=== PATIENT | female | born 1940 | race Caucasian/White ===

== ENCOUNTER → 2016-05-27 | Outpatient (CLI) | payer MEDICARE ==
[~2016-05-27] MED LIST: ACET325T96 PO; ATV1 PO; CALC-20 PO; METH-848 PO; MTRCR45 TOP; MULT-845 PO; NRV/5 PO; ONDA4TAB9 PO; OXYC1TAB3 PO; PSYL0.524 PO; TNR25 PO; ZFRODT/8 PO; [UNRECOGNIZED DRUG - OTHER] PR
[2016-05-27 14:04] LABS: CHOLESTEROL/HDL RATIO 2.5; THYROID STIMULATING HORMONE 0.23 uIu/ml (0.300-4.500)
== END | disposition home or self-care (01) ==
LOC: C.LABBC 10:51
PROVIDERS: ATTEND Internal Medicine
DX: R63.4 Abnormal weight loss (principal); R40.0 Somnolence

== ENCOUNTER → 2016-06-15 | Outpatient (CLI) | payer MEDICARE | END | disposition home or self-care (01) | LOC: C.MAMM 11:17 | PROVIDERS: ATTEND Internal Medicine | DX: M85.80 Other specified disorders of bone density and structure, unspecified site (principal); R63.4 Abnormal weight loss; M81.0 Age-related osteoporosis without current pathological fracture; Z78.0 Asymptomatic menopausal state; J01.90 Acute sinusitis, unspecified; J43.9 Emphysema, unspecified; R91.1 Solitary pulmonary nodule ==

== ENCOUNTER → 2016-06-15 | Outpatient (CLI) | payer MEDICARE ==
--- NOTE | 2016-06-15 15:29 | DIAGNOSTIC IMAGING REPORT ---
CHEST 2 VIEWS ROUTINE CLINICAL HISTORY: ACUTE SINUSITIS COMPARISON STUDY: 10/28/2015 FINDINGS: The chest has an emphysematous configuration. There is no failure. There is no lobar consolidation. There are chronic fibronodular opacities within the right midlung zone. There is a new 11 mm right midlung zone pulmonary nodule. This is rather dense despite its small size and may be calcified.[The nodule is not clearly visualized on the lateral radiograph. If further evaluation is desired, CT scanning would be considered the test of choice. IMPRESSION: 1. Radiographic evidence of emphysema 2. Stable fibronodular opacities at the right midlung zone. 3. New indeterminate 11 mm right midlung zone pulmonary nodule. The nodule is rather dense despite its small size, a finding favoring a benign etiology. Electronically signed by: Clint Lew M.D. 06/15/2016 3:28 PM Dictated Date/Time: 06/15/2016 3:25 PM
== END | disposition home or self-care (01) ==
LOC: C.RADBC 15:04
PROVIDERS: ATTEND Internal Medicine Geriatric Medicine
DX: J01.90 Acute sinusitis, unspecified (principal); J43.9 Emphysema, unspecified; R91.1 Solitary pulmonary nodule

== ENCOUNTER → 2016-06-16 | Outpatient (CLI) | payer MEDICARE ==
[2016-06-16 15:04] LABS: BLOOD UREA NITROGEN 13 mg/dl (7-18); BUN/CREATININE RATIO 20.1 (10-20); CALCIUM 9.3 mg/dl (8.5-10.1); CARBON DIOXIDE 28 mmol/L (21-32); CHLORIDE 104 mmol/L (98-107); CREATININE 0.66 mg/dl (0.60-1.20); GLUCOSE 83 mg/dl (70-99); POTASSIUM 4.3 mmol/L (3.5-5.1); SODIUM 140 mmol/L (136-145)
== END | disposition home or self-care (01) ==
LOC: C.LAB 12:17
PROVIDERS: ATTEND Internal Medicine Geriatric Medicine
DX: R91.1 Solitary pulmonary nodule (principal)

== ENCOUNTER → 2016-06-18 | Outpatient (CLI) | payer MEDICARE ==
--- NOTE | 2016-06-18 08:53 | DIAGNOSTIC IMAGING REPORT ---
CHEST CT WITH CONTRAST CT DOSE: 217.81 mGy.cm HISTORY: PULMONARY NODULE TECHNIQUE: Multiaxial CT images of the chest were performed following the intravenous administration of contrast. COMPARISON: 11/26/2013 FINDINGS: Slightly progressive parenchymal nodularity in the right lung as well as lung bases. Multinodular appearance to the right mid lung region including components of the right upper lobe and right middle lobe include nodules measuring from 4 to 11 mm. The millimeter nodule is peripheral and is best seen on image 35. This has increased from a prior measurement of 3 mm. All additional nodules again positioned primarily in the right mid lower lung region are progressive in terms of size as well as number. Minimal nodularity posterior left costophrenic angle considered stable. Mediastinal hilar regions are again remarkable for a rather prominent heterogeneous multinodular substernal thyroid. It again compromises the transverse lumen of the trachea and is similar. IMPRESSION: Mildly progressive pulmonary nodularity throughout the right and to a lesser extent left basilar pulmonary regions. 2. Unchanging substernal thyroid with evidence for transverse narrowing of the trachea 3. No significant mediastinal or hilar adenopathy. 4. Diagnostic nodularity considerations must include inflammatory, granulomatous, or neoplastic process. Electronically signed by: Robbie Glasgow M.D. 06/18/2016 8:51 AM Dictated Date/Time: 06/18/2016 8:42 AM
== END | disposition home or self-care (01) ==
LOC: C.CTS 08:17
PROVIDERS: ATTEND Internal Medicine Geriatric Medicine
DX: R91.1 Solitary pulmonary nodule (principal)

== ENCOUNTER → 2016-07-28 | Outpatient (CLI) | payer MEDICARE ==
[~2016-07-28] MED LIST changes: +DIPH-416 PO; +MIRT45TA3 PO
--- NOTE | 2016-07-28 14:42 | MAMMOGRAPHY REPORT ---
BILATERAL DIGITAL SCREENING MAMMOGRAM WITH CAD: 07/28/2016 CLINICAL HISTORY: Routine screening. Patient has no complaints. TECHNIQUE: Bilateral CC, MLO and repeat left MLO views were obtained. Current study was also evalua ceci with a Computer Aided Detection (CAD) system. COMPARISON: Comparison is made to exams dated: 06/26/2015 mammogram, 06/18/2014 mammogram, 06/15/2013 m ammogram - [facility], 05/08/2012 mammogram, 05/03/2011 mammogram, and 04/30/2010 mammo gram. BREAST COMPOSITION: The tissue of both breasts is extremely dense, which lowers the sensitivity of mammography. The breast parenchyma is increased in density, which can be secondary to recent weight loss. FINDINGS: The right MLO view is suboptimal due to inability of the patient to adequately position fo r the exam. There is a small clustered microcalcifications in the upper outer quadrant of the right breast, that appears stable on prior mammograms dating back to at least 2010, therefore likely pedro gn. No new suspicious mass, architectural distortion or cluster of microcalcifications is seen. IMPRESSION: ACR BI-RADS CATEGORY 1: NEGATIVE There is no mammographic evidence of malignancy, within the limitations of the exam. A 1 year screen ing mammogram is recommended. The patient will receive written notification of the results. Approximately 10% of breast cancers are not detected with mammography. A negative mammographic repor t should not delay biopsy if a clinically suggestive mass is present. Lisseth Gasca M.D. ay/:07/28/2016 11:10:02 Production Maintenance Technician: Iqra QUINONEZ(R)([place]), [facility] letter sent: Normal 1/2 BI-RADS Code: ACR BI-RADS Category 1: Negative
== END | disposition home or self-care (01) ==
LOC: C.MAMM 10:40
PROVIDERS: ATTEND Internal Medicine
DX: Z12.31 Encounter for screening mammogram for malignant neoplasm of breast (principal)

== ENCOUNTER → 2016-09-17 | Outpatient (CLI) | payer MEDICARE ==
[2016-09-17 16:08] LABS: THYROID STIMULATING HORMONE 0.286 uIu/ml (0.300-4.500)
== END | disposition home or self-care (01) ==
LOC: C.LAB 14:36
PROVIDERS: ATTEND Internal Medicine Endocrinology, Diabetes & Metabolism
DX: E04.1 Nontoxic single thyroid nodule (principal); E05.90 Thyrotoxicosis, unspecified without thyrotoxic crisis or storm

== ENCOUNTER → 2016-10-01 | Outpatient (CLI) | payer MEDICARE ==
--- NOTE | 2016-10-01 09:40 | DIAGNOSTIC IMAGING REPORT ---
Ultrasound of the finger regions LEFT EXTREMITY NONVASCULAR LIMITED CLINICAL HISTORY: SWOLLEN LYMPH NODES, 2CM SWELLING L GROIN TECHNIQUE: Real-time ultrasound COMPARISON STUDY: None FINDINGS: Real-time ultrasound confirms several benign-appearing lymph nodes in the inguinal regions bilaterally. These do not exceed 8 mm in maximum dimension. There are unremarkable in overall morphology IMPRESSION: Several small benign-appearing lymph nodes in the inguinal regions bilaterally Electronically signed by: Robbie Glasgow M.D. 10/01/2016 9:38 AM Dictated Date/Time: 10/01/2016 9:27 AM
== END | disposition home or self-care (01) ==
LOC: C.ULTR 09:04
PROVIDERS: ATTEND Dermatology
DX: R59.0 Localized enlarged lymph nodes (principal)

== ENCOUNTER → 2016-11-01 | Outpatient (CLI) | payer MEDICARE ==
[~2016-11-01] MED LIST changes: -DIPH-416 PO; -MIRT45TA3 PO
[2016-11-01 16:39] LABS: THYROID STIMULATING HORMONE 1.96 uIu/ml (0.300-4.500)
== END | disposition home or self-care (01) ==
LOC: C.LAB 15:45
PROVIDERS: ATTEND Internal Medicine Endocrinology, Diabetes & Metabolism
DX: E05.90 Thyrotoxicosis, unspecified without thyrotoxic crisis or storm (principal); E04.9 Nontoxic goiter, unspecified

== ENCOUNTER → 2016-11-02 | Outpatient (CLI) | payer MEDICARE ==
--- NOTE | 2016-11-02 11:04 | DIAGNOSTIC IMAGING REPORT ---
CT SCAN OF THE CHEST WITHOUT IV CONTRAST CLINICAL HISTORY: Follow-up pulmonary nodules. COMPARISON STUDY: Chest CT scans dated 06/18/2016 and 11/26/2013. TECHNIQUE: CT scan of the thorax was performed from the thoracic inlet to the upper abdomen. Images are reviewed in the axial, sagittal, and coronal planes. IV contrast was not administered for this examination. CT DOSE: 269.36 mGycm FINDINGS: Thyroid: The thyroid gland is markedly enlarged and heterogeneous. There are numerous low-attenuation thyroid nodules which measure up to at least 1.6 cm as well as coarse calcifications. This causes mild tracheal narrowing and the thyroid gland extends into the superior mediastinum. Thoracic aorta: There is mild atherosclerotic calcification of the thoracic aorta, which is normal in caliber and demonstrates standard 3-vessel arch anatomy. Heart: The heart is mildly enlarged and there is trace pericardial fluid. There are coronary artery calcifications. Lungs and pleural spaces: There is biapical scarring. As noted above, there is narrowing of the trachea at and below the level of the thoracic inlet secondary to mass effect from the markedly enlarged thyroid gland. The distal trachea and central airways are patent. There is no lobar consolidation or pleural effusion. Foci of linear atelectasis versus scarring are present throughout both lungs. There are numerous foci of tree-in-bud nodularity seen throughout both lungs, greatest in the lower lobes, the right upper lobe, and the right middle lobe. This is overall similar in appearance to the 06/18/2016 examination. The largest focus of nodularity is seen in the right upper lobe on image #173 and measures up to 11 mm. Mild bronchiectasis is seen in the right upper lobe. Mediastinum: There are scattered subcentimeter mediastinal lymph nodes. These are not pathologically enlarged by size criteria. [place]: Well assessed without IV contrast. Axillae: There is no axillary lymphadenopathy. Upper abdomen: Cholecystectomy clips are noted. Pill fragments are suggested in the stomach. The visualized kidneys demonstrate cortical atrophy. A 1.6 cm cyst is noted in the upper pole of the left kidney.. Skeletal structures: The skeletal structures are osteopenic. Degenerative change and hyperkyphosis are noted throughout the thoracic spine. No lytic or blastic bony lesions are seen. Advanced arthritic change is seen in the shoulders. IMPRESSION: 1. There is no lobar consolidation or pleural effusion. 2. There are numerous foci of tree-in-bud nodularity seen throughout both lungs, greatest in the right upper lobe and at the lung bases. Additionally, there is mild right upper lobe bronchiectasis. The appearance is atypical for neoplasm, and strongly favors a chronic/atypical infectious/inflammatory pneumonitis such as ROXY or fungus. Clinical correlation will be essential. A precautionary 6 month follow-up examination is recommended for reassessment. 3. Markedly enlarged, heterogeneous, and multinodular thyroid gland with substernal extension. The appearance is typical for multinodular goiter. 4. There is mild narrowing of the trachea at and below the level of the thoracic inlet secondary to the markedly enlarged thyroid gland. 5. Mild cardiomegaly. 6. Additional findings as above. Electronically signed by: Elieser Camarillo M.D. 11/02/2016 11:03 AM Dictated Date/Time: 11/02/2016 10:54 AM
== END | disposition home or self-care (01) ==
LOC: C.CTS 09:50
PROVIDERS: ATTEND Internal Medicine Pulmonary Disease
DX: R91.8 Other nonspecific abnormal finding of lung field (principal); E04.2 Nontoxic multinodular goiter

== ENCOUNTER 2016-12-05 12:38 | Emergency (ER) | payer MEDICARE ==
[~2016-12-05] VITALS: Ht 167.6 cm; Wt 52.7 kg
[~2016-12-05 12:38] MED LIST changes: -ACET325T96 PO; -METH-848 PO; -OXYC1TAB3 PO
[2016-12-05 12:42] VITALS: Ht 167.6 cm; Wt 52.7 kg
[2016-12-05] MEDS ORDERED: METH-848 PO (12:55)
[2016-12-05] MEDS ORDERED: ACET325T96 PO (12:55)
[2016-12-05] MEDS ORDERED: SODIUM CHLORIDE 0.9% 1000ML 1,000 ML IV STA (12:56)
[2016-12-05] MEDS ORDERED: ONDANSETRON INJ 2 MG/ML 2 ML VIAL IV STA (12:56)
--- NOTE | 2016-12-05 12:58 | EMERGENCY ROOM VISIT NOTE ---
History Report prepared by Giselle: Maki Mann Under the Supervision of: Dr. Avni Key D.O. First contact with patient: 12:49 Chief Complaint: GI ASSESSMENT Stated Complaint: PAIN IN BELLY AND DOWN TO PELVIC AREA Nursing Triage Summary: triage note pt has ibs and is under stress, pt reports pain in center of abdomin with increasing one day after eating causing additional pain. denies d/v History of Present Illness The patient is a 76 year old female who presents to the Emergency Room with complaints of worsening abdominal pain for the past 1 day. She rates her pain as a 3/10 and describes it as being located in the center of her abdomen. Eating worsens her discomfort. She has a history of IBS and states she called her doctors office this morning, and was referred to the ED for further evaluation. The patient admits she has been under more stress recently, which can exacerbate her IBS symptoms. She has a previous history of a cholecystectomy but still has her appendix. She denies any chest pain, shortness of breath, nausea, vomiting or diarrhea. Source of History: patient Onset: 1 day [employer] SUPER[employer] Position: abdomen Symptom Intensity: 3/10 Timing: worsening Modifying Factors (Worsening): eating, other (recent stress) Associated Symptoms: No chest pain, No SOB, No nausea, No vomiting, No diarrhea Review of Systems See HPI for pertinent positives & negatives. A total of 10 systems reviewed and were otherwise negative. 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 (6) Melanoma in situ (7) Stomach problems Surgical Problems: (1) History of cholecystectomy (2) S/P knee replacement Family History Hypertension Social History Smoking Status: Former Smoker Alcohol Use: none Drug Use: none Marital Status: in relationship Housing Status: lives with significant other Occupation Status: retired Current/Historical Medications Scheduled Acetaminophen Tab (Tylenol), 650 MG PO DAILY Amlodipine Besylate (Amlodipine Besylate), 5 MG PO DAILY Atenolol (Atenolol), 25 MG PO DAILY Calcium Carbonate-Vitamin D (Calcium 600 + D), 1 TAB PO DAILY Methimazole (Methimazole), 5 MG PO DAILY Multiple Vitamins W/ Minerals (Centrum Silver Adult 50+), 1 TAB PO DAILY Scheduled PRN Lorazepam (Lorazepam), 0.5-1 MG PO Q6H PRN for Anxiety Oxycodone Immediate Rel Tab (Roxicodone Ir), 1-2 TAB PO Q4H PRN for Severe Pain Allergies Coded Allergies: NSAIDs (Verified Adverse Reaction, Intermediate, Pt has colitis. No allergy, not to take NSAIDS, 10/21/15) Morphine (Unverified Adverse Reaction, Mild, sick and dizzy, 10/14/15) Gabapentin (Verified Adverse Reaction, Unknown, GI SYMPTOMS, 10/21/15) Physical Exam Vital Signs Date Time Temp Pulse Resp B/P (MAP) Pulse Ox O2 Delivery O2 Flow Rate FiO2 12/05/16 16:46 36.6 73 18 149/68 95 12/05/16 16:02 69 18 155/63 95 Room Air 12/05/16 14:29 72 18 148/65 95 Room Air 12/05/16 13:50 75 12/05/16 12:42 36.6 89 18 156/82 97 Room Air Physical Exam GENERAL: Patient is awake, alert, in no acute distress, patient is resting comfortably and showing no signs of anxiety EYES: The conjunctivae are clear. The pupils are round and reactive. EARS, NOSE, MOUTH AND THROAT: The nose is without any evidence of any deformity. Mucous membranes are moist tongue is midline NECK: The neck is nontender and supple. RESPIRATORY: Normal respiratory effort is noted there is no evidence of wheezing rhonchi or rales CARDIOVASCULAR: Regular rate and rhythm noted there no murmurs rubs or gallops normal S1 normal S2 GASTROINTESTINAL: The abdomen is soft with diffuse tenderness to palpation, mild guarding noted in both lower quadrants. BACK: No midline tenderness or or step-off noted range of motion in flexion extension as well as rotation no signs of muscle spasm noted MUSCULOSKELETAL/EXTREMITIES: There is no evidence of gross deformity full range of motion is noted in the hips and shoulders SKIN: Pedal edema bilaterally. There is no obvious evidence of any rash. There are no petechiae, pallor or cyanosis noted. NEUROLOGIC: Patient is awake alert and oriented x3 strength is symmetric patellar reflexes are 2+ bilaterally Medical Decision & Procedures ER Provider Diagnostic Interpretation: Radiology results as stated below per my review and radiologist interpretation: CHEST ONE VIEW PORTABLE HISTORY: Generalized abdominal pain. COMPARISON: Chest CT 11/02/2016. FINDINGS: The heart remains mildly enlarged. The lungs are hyperexpanded with apical predominant changes. Diffuse chronic interstitial thickening, unchanged. No new focal lung consolidations. Right upper to midlung zone peripheral nodular densities are again noted. Thyroid goiter, unchanged. No pleural effusions. No pneumothorax. IMPRESSION: No significant change compared to the prior study. No acute process. Stable peripheral nodular densities within the right upper to midlung zone. Electronically signed by: Aldo Pisano M.D. 12/05/2016 1:[address] OF THE ABDOMEN AND PELVIS WITH CONTRAST CLINICAL HISTORY: Lower abdominal pain. COMPARISON STUDY: CT of the abdomen and pelvis October 21, 2015. TECHNIQUE: Following IV administration of 115 mL of Optiray-320, axial images of the abdomen and pelvis were obtained from the lung bases to the proximal femurs. Images were reviewed in the axial, sagittal, and coronal planes. IV contrast was administered without complication. A dose lowering technique was utilized adhering to the principles of ALARA. Oral contrast was administered. CT DOSE: 237.04 mGy.cm FINDINGS: Visualized portions of the lower chest demonstrate bronchiectasis with mucus plugging within the right middle lobe. There are mild tree-in-bud opacities within the lower lobes which were shown on prior exams. The liver, spleen, adrenal glands and pancreas are unremarkable. Slight dilatation of the biliary tree is likely related to prior cholecystectomy. There are numerous water attenuation bilateral renal lesions which are consistent with cysts. There is no hydronephrosis. There is no evidence for a bowel obstruction. There is sigmoid diverticulosis without evidence for acute diver colitis. No pneumatosis, free air or portal venous gas is present. The appendix is not visualized but there is no right lower quadrant inflammation. There are no suspicious osseous lesions. IMPRESSION: 1. No acute process within the abdomen or pelvis. 2. Sigmoid diverticulosis without evidence for acute diverticulitis. 3. No bowel obstruction. 4. Numerous bilateral renal cysts. Electronically signed by: Nicolas Cheng M.D. 12/05/2016 4:12 PM Laboratory Results 12/05/16 13:05 Red Blood Count 3.98, Mean Corpuscular Volume 93.7, Mean Corpuscular Hemoglobin 31.4, Mean Corpuscular Hemoglobin Concent 33.5, Mean Platelet Volume 11.0, Neutrophils (%) (Auto) 58.3, Lymphocytes (%) (Auto) 24.8, Monocytes (%) (Auto) 12.1, Eosinophils (%) (Auto) 3.8, Basophils (%) (Auto) 0.8, Neutrophils # (Auto ) 2.75, Lymphocytes # (Auto) 1.17, Monocytes # (Auto) 0.57, Eosinophils # (Auto ) 0.18, Basophils # (Auto) 0.04 12/05/16 13:05 Test 12/05/16 13:05 12/05/16 13:16 12/05/16 13:45 White Blood Count 4.72 K/uL (4.8-10.8) Red Blood Count 3.98 M/uL (4.2-5.4) Hemoglobin 12.5 g/dL (12.0-16.0) Hematocrit 37.3 % (37-47) Mean Corpuscular Volume 93.7 fL (80-100) Mean Corpuscular Hemoglobin 31.4 pg (25-34) Mean Corpuscular Hemoglobin Concent 33.5 g/dl (32-36) Platelet Count 223 K/uL (130-400) Mean Platelet Volume 11.0 fL (7.4-10.4) Neutrophils (%) (Auto) 58.3 % Lymphocytes (%) (Auto) 24.8 % Monocytes (%) (Auto) 12.1 % Eosinophils (%) (Auto) 3.8 % Basophils (%) (Auto) 0.8 % Neutrophils # (Auto) 2.75 K/uL (1.4-6.5) Lymphocytes # (Auto) 1.17 K/uL (1.2-3.4) Monocytes # (Auto) 0.57 K/uL (0.11-0.59) Eosinophils # (Auto) 0.18 K/uL (0-0.5) Basophils # (Auto) 0.04 K/uL (0-0.2) RDW Standard Deviation 46.0 fL (36.4-46.3) RDW Coefficient of Variation 13.4 % (11.5-14.5) Immature Granulocyte % (Auto) 0.2 % Immature Granulocyte # (Auto) 0.01 K/uL (0.00-0.02) Prothrombin Time 10.4 SECONDS (9.0-12.0) Prothromb Time International Ratio 1.0 (0.9-1.1) Activated Partial Thromboplast Time 26.0 SECONDS (21.0-31.0) Partial Thromboplastin Ratio 1.0 Anion Gap 4.0 mmol/L (3-11) Est Creatinine Clear Calc Drug Dose 65.3 ml/min Estimated GFR () 101.9 Estimated GFR (Non- 87.9 BUN/Creatinine Ratio 18.5 (10-20) Calcium Level 9.4 mg/dl (8.5-10.1) Total Bilirubin 0.5 mg/dl (0.2-1) Direct Bilirubin 0.1 mg/dl (0-0.2) Aspartate Amino Transf (AST/SGOT) 18 U/L (15-37) Alanine Aminotransferase (ALT/SGPT) 23 U/L (12-78) Alkaline Phosphatase 81 U/L (45-117) Total Creatine Kinase 45 U/L (26-192) Creatine Kinase MB < 0.5 ng/ml (0.5-3.6) Creatine Kinase MB Ratio (0-3.0) Troponin I < 0.015 ng/ml (0-0.045) Total Protein 6.6 gm/dl (6.4-8.2) Albumin 3.5 gm/dl (3.4-5.0) Lipase 147 U/L (73-393) Bedside Lactic Acid Venous 0.71 mmol/L (0.90-1.70) Urine Color YELLOW Urine Appearance CLEAR (CLEAR) Urine pH 8.0 (4.5-7.5) Urine Specific Helen 1.014 (1.000-1.030) Urine Protein NEG (NEG) Urine Glucose (UA) NEG (NEG) Urine Ketones NEG (NEG) Urine Occult Blood NEG (NEG) Urine Nitrite NEG (NEG) Urine Bilirubin NEG (NEG) Urine Urobilinogen NEG (NEG) Urine Leukocyte Esterase TRACE (NEG) Urine WBC (Auto) 1-5 /hpf (0-5) Urine RBC (Auto) 0-4 /hpf (0-4) Urine Hyaline Casts (Auto) 0 /lpf (0-5) Urine Epithelial Cells (Auto) 5-10 /lpf (0-5) Urine Bacteria (Auto) NEG (NEG) Laboratory results per my review. Medications Administered Medications (Trade) Dose Ordered Sig/Mirna Route Start Time Stop Time Status Last Admin Dose Admin Sodium Chloride 1,000 ml @ 999 mls/hr Q1H1M STAT IV 12/05/16 12:56 12/05/16 13:56 DC 12/05/16 13:30 999 MLS/HR Ondansetron HCl (Zofran Inj) 4 mg NOW STAT IV 12/05/16 12:56 12/05/16 12:58 DC 12/05/16 13:28 4 MG ECG Indication: abdominal pain Rate (beats per minute): 66 Rhythm: normal sinus Findings: no acute ischemic change, no ectopy Change: no significant change (10/23/2015) ED Course 1254: The patient was evaluated in room B5. A complete history and physical examination were performed. 1256: Zofran 4 mg IV, NSS 1000 ml @ 999 mls/hr IV. 1630: I reevaluated the patient. I discussed her results and discharge instructions and she verbalized complete understanding and agreement. 1436: Fentanyl 50 mcg IV. Medical Decision Prior records/ancillary studies reviewed. Triage Nursing notes reviewed. The patient's history was concerning for abdominal pain. Differential diagnosis: Etiologies such as appendicitis, diverticulitis, PUD, biliary pathology, UTI, pancreatitis, obstruction, mesenteric ischemia, aortic pathology, infections, inflammatory bowel disease, renal colic, as well as others were entertained. The patient is a 76-year-old female who presented to the emergency department for an evaluation of lower abdominal pain. The patient is a history of irritable bowel syndrome and thought it could be consistent with her irritable bowel syndrome but she was sent to the emergency department after the on-call physician advised her to come to the emergency department for a workup for appendicitis. The patient was treated with IV fluids in the emergency department. She did not wish to have any pain medication. I discussed the patient's laboratory and radiographic studies with her. She was encouraged to follow-up with her primary care physician as scheduled. She was also encouraged to drink plenty clear liquids and continue all medications as prescribed. She was also encouraged return to the emergency Department immediately if symptoms change worsen or if the need arises. Medication Reconcilliation Current Medication List: was personally reviewed by me Blood Pressure Screening Patient's blood pressure: Elevated blood pressure Blood pressure disposition: Referred to PCP Impression Primary Impression: Lower abdominal pain Scribe Attestation The scribe's documentation has been prepared under my direction and personally reviewed by me in its entirety. I confirm that the note above accurately reflects all work, treatment, procedures, and medical decision making performed by me. Departure Information Dispostion Home / Self-Care Prescriptions Oxycodone Immediate Rel Tab (ROXICODONE IR) 5 Mg Tab 1-2 TAB PO Q4H Y for Severe Pain, #24 TAB Prov: Avni Key, DO 12/05/16 Referrals Markos Flannery M.D. (PCP) Patient Instructions ED Abdominal Pain Unkn Cause, [facility] Additional Instructions Follow-up with your family as scheduled. Continue to drink plenty clear liquids. Continue all medications as prescribed. Return to the emergency department immediately if symptoms change worsen or the need arises.
[2016-12-05] MEDS ORDERED: OPTIRAY 320 IV PRN (13:00)
[2016-12-05] MEDS: FENTANYL CITRATE INJ 50 MCG/1 ML 2 ML VIAL IV PRN ×2 (13:29→13:36)
[2016-12-05 13:41] LABS: BASO % 0.8 %; BASO ABS # 0.04 K/uL (0-0.2); COMPLETE YES; EOS % 3.8 %; HEMATOCRIT 37.3 % (37-47); IG% 0.2 %; LYMPH % 24.8 %; LYMPH ABS # 1.17 K/uL (1.2-3.4); MEAN CELL VOLUME 93.7 fL (80-100); MEAN CORPUSCULAR HEMOGLOBIN 31.4 pg (25-34); MEAN CORPUSCULAR HGB CONC 33.5 g/dl (32-36); MONO % 12.1 %; NEUT % 58.3 %; PLATELET COUNT 223 K/uL (130-400); RED BLOOD COUNT 3.98 M/uL (4.2-5.4); WHITE BLOOD COUNT 4.72 K/uL (4.8-10.8)
--- NOTE | 2016-12-05 13:52 | DIAGNOSTIC IMAGING REPORT ---
CHEST ONE VIEW PORTABLE HISTORY: Generalized abdominal pain. COMPARISON: Chest CT 11/02/2016. FINDINGS: The heart remains mildly enlarged. The lungs are hyperexpanded with apical predominant changes. Diffuse chronic interstitial thickening, unchanged. No new focal lung consolidations. Right upper to midlung zone peripheral nodular densities are again noted. Thyroid goiter, unchanged. No pleural effusions. No pneumothorax. IMPRESSION: No significant change compared to the prior study. No acute process. Stable peripheral nodular densities within the right upper to midlung zone. Electronically signed by: Aldo Pisano M.D. 12/05/2016 1:50 PM Dictated Date/Time: 12/05/2016 1:48 PM
[2016-12-05 13:54] LABS: PROTHROMBIN TIME (PATIENT) 10.4 SECONDS (9.0-12.0)
[2016-12-05 14:00] LABS: ALT/SGPT 23 U/L (12-78); AST/SGOT 18 U/L (15-37); BLOOD UREA NITROGEN 11 mg/dl (7-18); BUN/CREATININE RATIO 18.5 (10-20); CALCIUM 9.4 mg/dl (8.5-10.1); CARBON DIOXIDE 33 mmol/L (21-32); CHLORIDE 104 mmol/L (98-107); GLUCOSE 124 mg/dl (70-99); POTASSIUM 3.9 mmol/L (3.5-5.1); SODIUM 141 mmol/L (136-145)
[2016-12-05 14:05] LABS: ALKALINE PHOSPHATASE 81 U/L (45-117)
[2016-12-05 14:09] LABS: URINE APPEARANCE CLEAR (CLEAR); URINE BILIRUBIN NEG (NEG); URINE COLOR YELLOW; URINE NITRITE NEG (NEG); URINE SPECIFIC GRAVITY 1.014 (1.000-1.030); UROBILINOGEN NEG (NEG)
[2016-12-05 14:10] LABS: MANUAL MICROSCOPIC REQUIRED? NO; REVIEW REQ? NO
--- NOTE | 2016-12-05 16:14 | DIAGNOSTIC IMAGING REPORT ---
CT OF THE ABDOMEN AND PELVIS WITH CONTRAST CLINICAL HISTORY: Lower abdominal pain. COMPARISON STUDY: CT of the abdomen and pelvis October 21, 2015. TECHNIQUE: Following IV administration of 115 mL of Optiray-320, axial images of the abdomen and pelvis were obtained from the lung bases to the proximal femurs. Images were reviewed in the axial, sagittal, and coronal planes. IV contrast was administered without complication. A dose lowering technique was utilized adhering to the principles of ALARA. Oral contrast was administered. CT DOSE: 237.04 mGy.cm FINDINGS: Visualized portions of the lower chest demonstrate bronchiectasis with mucus plugging within the right middle lobe. There are mild tree-in-bud opacities within the lower lobes which were shown on prior exams. The liver, spleen, adrenal glands and pancreas are unremarkable. Slight dilatation of the biliary tree is likely related to prior cholecystectomy. There are numerous water attenuation bilateral renal lesions which are consistent with cysts. There is no hydronephrosis. There is no evidence for a bowel obstruction. There is sigmoid diverticulosis without evidence for acute diver colitis. No pneumatosis, free air or portal venous gas is present. The appendix is not visualized but there is no right lower quadrant inflammation. There are no suspicious osseous lesions. IMPRESSION: 1. No acute process within the abdomen or pelvis. 2. Sigmoid diverticulosis without evidence for acute diverticulitis. 3. No bowel obstruction. 4. Numerous bilateral renal cysts. Electronically signed by: Nicolas Cheng M.D. 12/05/2016 4:12 PM Dictated Date/Time: 12/05/2016 4:04 PM
[2016-12-05] MEDS ORDERED: OXYC1TAB3 PO (16:34)
[2016-12-05 16:46] VITALS: BP 149/68; PULSE 73; TEMP 36.6; O2SAT 95
== END 2016-12-05 16:47 | disposition home or self-care (01) ==
LOC: C.EDB 12:40
DX: R10.30 Lower abdominal pain, unspecified (principal); K52.9 Noninfective gastroenteritis and colitis, unspecified; E03.9 Hypothyroidism, unspecified; D03.9 Melanoma in situ, unspecified; Z82.49 Family history of ischemic heart disease and other diseases of the circulatory system; Z87.891 Personal history of nicotine dependence

== ENCOUNTER → 2016-12-13 | Outpatient (CLI) | payer MEDICARE ==
[~2016-12-13] MED LIST changes: +ACET325T96 PO; +METH-848 PO; -MTRCR45 TOP; -ONDA4TAB9 PO; +OXYC1TAB3 PO; -PSYL0.524 PO; -ZFRODT/8 PO; -[UNRECOGNIZED DRUG - OTHER] PR
[2016-12-13 10:22] LABS: THYROID STIMULATING HORMONE 0.342 uIu/ml (0.300-4.500)
== END | disposition home or self-care (01) ==
LOC: C.LAB 08:54
PROVIDERS: ATTEND Internal Medicine Endocrinology, Diabetes & Metabolism
DX: E04.1 Nontoxic single thyroid nodule (principal); E05.90 Thyrotoxicosis, unspecified without thyrotoxic crisis or storm

== ENCOUNTER → 2017-01-17 | Outpatient (CLI) | payer MEDICARE | END | disposition home or self-care (01) | LOC: C.LAB 10:52 | PROVIDERS: ATTEND Internal Medicine Endocrinology, Diabetes & Metabolism | DX: E05.90 Thyrotoxicosis, unspecified without thyrotoxic crisis or storm (principal) ==

== ENCOUNTER → 2017-03-24 | Outpatient (CLI) | payer MEDICARE ==
[~2017-03-24] MED LIST changes: +DIPH-416 PO; +MIRT45TA3 PO
== END | disposition home or self-care (01) ==
LOC: C.LABSPEC 09:27
PROVIDERS: ATTEND Physician Assistant Medical
DX: R19.7 Diarrhea, unspecified (principal)

== ENCOUNTER → 2017-03-29 | Outpatient (CLI) | payer MEDICARE ==
[~2017-03-29] MED LIST changes: -OXYC1TAB3 PO
--- NOTE | 2017-03-29 15:54 | DIAGNOSTIC IMAGING REPORT ---
[facility]UB CLINICAL HISTORY: DIARRHEA R19.7 COMPARISON STUDY: 10/28/2015 FINDINGS: There are surgical clips within the right upper quadrant consistent with a prior cholecystectomy. There is gas within nondilated large and small bowel loops. There are no transition zones indicate bowel obstruction. There are few nonspecific punctate opacities projected over the right kidney. These are unlikely to represent calculi as none were visualized in the CT scan performed in November 2016 IMPRESSION: No evidence of pathologic bowel dilatation. Electronically signed by: Clint Lew M.D. 03/29/2017 3:53 PM Dictated Date/Time: 03/29/2017 3:51 PM
== END | disposition home or self-care (01) ==
LOC: C.RAD 15:25
PROVIDERS: ATTEND Internal Medicine Gastroenterology
DX: R19.7 Diarrhea, unspecified (principal)

== ENCOUNTER → 2017-04-06 | Outpatient (CLI) | payer MEDICARE ==
[2017-04-06 13:28] LABS: BLOOD UREA NITROGEN 16 mg/dl (7-18); BUN/CREATININE RATIO 19.8 (10-20); CALCIUM 9.1 mg/dl (8.5-10.1); CARBON DIOXIDE 29 mmol/L (21-32); CHLORIDE 105 mmol/L (98-107); CREATININE 0.82 mg/dl (0.60-1.20); GLUCOSE 80 mg/dl (70-99); POTASSIUM 4.2 mmol/L (3.5-5.1); SODIUM 138 mmol/L (136-145)
[2017-04-08 13:29] LABS: GLIADIN DEAMIDATED IgA AB 3 UNITS (<20); GLIADIN DEAMIDATED IgG AB 4 UNITS (<20); RETICULIN IgA AB Negative (Negative)
[2017-04-11 01:35] LABS: IGA SERUM 91 mg/dL (81-463); TIS TRANS IGA 1 U/mL (<4)
== END | disposition home or self-care (01) ==
LOC: C.LAB 10:05
PROVIDERS: ATTEND Internal Medicine Gastroenterology
DX: R19.7 Diarrhea, unspecified (principal); E05.90 Thyrotoxicosis, unspecified without thyrotoxic crisis or storm; E04.9 Nontoxic goiter, unspecified

== ENCOUNTER → 2017-05-03 | Outpatient (CLI) | payer MEDICARE ==
--- NOTE | 2017-05-03 09:54 | DIAGNOSTIC IMAGING REPORT ---
CT OF THE CHEST WITHOUT IV CONTRAST CLINICAL HISTORY: Multiple lung nodules. COMPARISON STUDY: Chest CTs November 26, 2013 and November 02, 2016 and chest radiograph December 05, 2016. CT DOSE: 471.24 mGy.cm TECHNIQUE: Axial images of the chest were obtained without IV contrast. Images were reviewed in the axial, sagittal, and coronal planes. IV contrast was not administered for this examination. A dose lowering technique was utilized adhering to the principles of ALARA. FINDINGS: A markedly enlarged heterogeneous thyroid gland is unchanged consistent with a multinodular goiter. The heart is mildly enlarged. There is a trace pericardial effusion. No enlarged mediastinal or hilar lymph nodes are present. There is no axillary lymphadenopathy. Central airways are patent. There is no pneumothorax or pleural effusion. Numerous nodules are noted throughout the lungs. Many of these have a tree-in-bud distribution and several may reflect mucoid impacted bronchi. The majority of these are unchanged since chest CT of November 02, 2016. A 1 x 0.6 cm right upper lobe nodule shown on image 91 of 311 has slightly decreased in size. It previously measured 1.4 x 0.8 cm. A 1.1 cm left upper lobe lesion shown image 141 has significantly increased. A 1.1 cm right middle lobe nodule shown image 246 has increased. A few left basilar nodules have also increased in size. No suspicious osseous lesions are noted. Upper abdomen is unremarkable. IMPRESSION: 1. Innumerable nodules throughout the lungs, several of which are in a tree-in-bud distribution and several likely reflect mucoid impacted bronchi. A few nodules have increased in size since exam of November 02, 2016 while a right upper lobe nodule has decreased in size. The appearance strongly favors an infectious/inflammatory etiology such as an atypical mycobacterial infection. The appearance is not typical for neoplastic process. A follow-up chest CT in 6 months is recommended. 2. Markedly enlarged heterogeneous thyroid gland consistent with a multinodular goiter. Electronically signed by: Nicolas Cheng M.D. 05/03/2017 9:53 AM Dictated Date/Time: 05/03/2017 9:32 AM
== END | disposition home or self-care (01) ==
LOC: C.CTS 09:09
PROVIDERS: ATTEND Internal Medicine Pulmonary Disease
DX: R91.8 Other nonspecific abnormal finding of lung field (principal)

== ENCOUNTER → 2017-06-10 | Outpatient (CLI) | payer MEDICARE ==
[~2017-06-10] MED LIST changes: +ACET-1693 PO; -ACET325T96 PO
== END | disposition home or self-care (01) ==
LOC: C.LABVPSUW 08:49
PROVIDERS: ATTEND Internal Medicine Gastroenterology
DX: R19.7 Diarrhea, unspecified (principal)

== ENCOUNTER → 2017-06-21 | Outpatient (CLI) | payer MEDICARE | END | disposition home or self-care (01) | LOC: C.MAMM 10:49 | PROVIDERS: ATTEND Internal Medicine Gastroenterology | DX: Z79.899 Other long term (current) drug therapy (principal); M81.0 Age-related osteoporosis without current pathological fracture; M85.88 Other specified disorders of bone density and structure, other site ==

== ENCOUNTER → 2017-09-05 | Outpatient (CLI) | payer MEDICARE | END | disposition home or self-care (01) | LOC: C.LABSPEC 10:39 | PROVIDERS: ATTEND Internal Medicine Rheumatology | DX: E04.1 Nontoxic single thyroid nodule (principal); E05.90 Thyrotoxicosis, unspecified without thyrotoxic crisis or storm; E04.9 Nontoxic goiter, unspecified; K52.839 Microscopic colitis, unspecified; M81.0 Age-related osteoporosis without current pathological fracture; E61.8 Deficiency of other specified nutrient elements ==